=== PATIENT | male | born 1955 | race Caucasian/White ===

== ENCOUNTER 2018-05-08 11:12 | Emergency (ER) | payer OTHER ==
[~2018-05-08] VITALS: Ht 180.3 cm; Wt 90.7 kg
[~2018-05-08 11:12] MED LIST: CADUET 10 MG/101 TAB; LIPITOR20 MG; NORVASC2.5 MG; TRAMADOL HCL50 MG
[2018-05-08] MEDS ORDERED: VASOTEC5 MG (11:31)
== END 2018-05-08 15:43 | disposition home or self-care (01) ==
LOC: ER 11:12
DX: R07.89 Other chest pain (principal)

== ENCOUNTER 2018-10-15 10:23 | Emergency (ER) | payer OTHER ==
[~2018-10-15] VITALS: Ht 180.3 cm; Wt 106.6 kg
[~2018-10-15 10:23] MED LIST changes: +VASOTEC5 MG
[2018-10-15] MEDS ORDERED: CELEBREX100 MG PO (11:49)
== END 2018-10-15 12:12 | disposition home or self-care (01) ==
LOC: ER 10:23
DX: M25.561 Pain in right knee (principal)

== ENCOUNTER 2018-11-14 19:11 | Emergency (ER) | payer OTHER ==
[~2018-11-14] VITALS: Ht 180.3 cm; Wt 106.6 kg
[~2018-11-14 19:11] MED LIST changes: +CELEBREX100 MG PO
== END 2018-11-14 21:24 | disposition home or self-care (01) ==
LOC: ER 19:11
DX: M25.561 Pain in right knee (principal)

== ENCOUNTER 2020-02-07 12:21 | Emergency (ER) | payer OTHER ==
[~2020-02-07] VITALS: Ht 180.3 cm; Wt 97.5 kg
[2020-02-07] MEDS ORDERED: METFORMIN HCL500 M3 (12:32)
[2020-02-07] MEDS ORDERED: MAGNESIUM400 MG (12:32)
[2020-02-07] MEDS ORDERED: ROSUVASTATIN CA20 MG (12:33)
[2020-02-07] MEDS ORDERED: FOLIC ACID1 MG (12:33)
== END 2020-02-07 17:43 | disposition home or self-care (01) ==
LOC: ER 12:21 → CPU-OBS 12:46 → ER 17:43
DX: R07.89 Other chest pain (principal); Z03.818 Encounter for observation for suspected exposure to other biological agents ruled out
CPT/HCPCS: G0378; G0379; 93005

== ENCOUNTER 2020-11-12 21:11 | Emergency (ER) | payer OTHER ==
[~2020-11-12] VITALS: Ht 180.3 cm; Wt 95.3 kg
[~2020-11-12 21:11] MED LIST changes: +FOLIC ACID1 MG; +MAGNESIUM400 MG; +METFORMIN HCL500 M3; +ROSUVASTATIN CA20 MG
== END 2020-11-12 22:33 | disposition home or self-care (01) ==
LOC: ER 21:11
DX: K02.3 Arrested dental caries (principal); K08.89 Other specified disorders of teeth and supporting structures

== ENCOUNTER 2021-03-30 19:17 | Emergency (ER) | payer OTHER ==
[~2021-03-30] VITALS: Ht 152.4 cm; Wt 92.5 kg
[2021-03-30] MEDS ORDERED: NORFLEX100MG PO (22:18)
== END 2021-03-30 22:53 | disposition home or self-care (01) ==
LOC: ER 19:17
DX: R07.89 Other chest pain (principal); Z03.818 Encounter for observation for suspected exposure to other biological agents ruled out

== ENCOUNTER 2021-04-11 11:12 | Inpatient (IN) | payer OTHER ==
[~2021-04-11] VITALS: Ht 180.3 cm; Wt 93.0 kg
[~2021-04-11 11:12] MED LIST changes: +NORFLEX100MG PO
[2021-04-15] MEDS ORDERED: LOSARTAN POTASS50 MG PO (16:36)
[2021-04-15] MEDS ORDERED: ST. JOSEPH ASPI81 M2 PO (16:36)
[2021-04-15] MEDS ORDERED: MECLIZINE HCL12.5 MG PO (16:36)
[2021-04-15] MEDS ORDERED: LIPITOR40 MG PO (16:36)
[2021-04-15] MEDS ORDERED: FAMOTIDINE20 MG PO (16:36)
[2021-04-15] MEDS ORDERED: BRILINTA90 MG PO (16:36)
== END 2021-04-16 05:25 | disposition home or self-care (01) | DRG 303 ==
LOC: ER 11:12 → SEC-K 19:44 → MEDI 19:44
PROVIDERS: ADMIT Internal Medicine Cardiovascular Disease; ATTEND Internal Medicine Cardiovascular Disease
PROC: 4A02XM4 Measurement of Cardiac Total Activity, External Approach (ICD-10-PCS; principal; 2021-04-14)
DX: I25.10 Atherosclerotic heart disease of native coronary artery without angina pectoris (principal); I10 Essential (primary) hypertension; Z20.822 Contact with and (suspected) exposure to COVID-19
CPT/HCPCS: 70552

== ENCOUNTER 2022-08-31 10:12 | Emergency (ER) | payer OTHER ==
[~2022-08-31] VITALS: Ht 180.3 cm; Wt 90.7 kg
[~2022-08-31 10:12] MED LIST changes: +BRILINTA90 MG PO; +FAMOTIDINE20 MG PO; +LIPITOR40 MG PO; +LOSARTAN POTASS50 MG PO; +MECLIZINE HCL12.5 MG PO; +ORPHENADRINE C100 MG PO; +ST. JOSEPH ASPI81 M2 PO
[2022-08-31] MEDS ORDERED: ENALAPRIL MALEAT5 MG PO (10:55)
[2022-08-31] MEDS ORDERED: GABAPENTIN600 MG (10:56)
[2022-08-31] MEDS ORDERED: EZETIMIBE10 MG (10:56)
[2022-08-31] MEDS ORDERED: ROSUVASTATIN CA20 MG (10:57)
== END 2022-08-31 15:58 | disposition home or self-care (01) ==
LOC: ER 10:12
DX: R30.0 Dysuria (principal)

== ENCOUNTER 2022-09-21 09:56 | Outpatient (CLI) | payer OTHER ==
[~2022-09-21 09:56] MED LIST changes: +ENALAPRIL MALEAT5 MG PO; +EZETIMIBE10 MG; +GABAPENTIN600 MG; +GRALISE600 MG PO; +ISOSORBIDE MONO60 MG PO; +MAGNESIUM400 MG PO; +METFORMIN HCL500 MG
== END 2022-09-21 10:04 | disposition home or self-care (01) ==
LOC: MRI 09:56
PROVIDERS: ATTEND Internal Medicine Cardiovascular Disease
DX: G56.91 Unspecified mononeuropathy of right upper limb (principal)
CPT/HCPCS: 72148

== ENCOUNTER 2022-10-21 11:26 | Inpatient (IN) | payer OTHER ==
[~2022-10-21] VITALS: Ht 180.3 cm; Wt 91.6 kg
[~2022-10-21 11:26] MED LIST changes: -METFORMIN HCL500 MG; +METFORMIN HCL500 MG PO; +ROSUVASTATIN CA20 MG PO
[2022-10-26] MEDS ORDERED: AMLODIPINE BESYL5 MG PO (09:19)
[2022-10-26] MEDS ORDERED: FERROUS SULFAT325 M1 PO (09:19)
[2022-10-26] MEDS ORDERED: Septra Ds Tablet PO (09:19)
[2022-10-26] MEDS ORDERED: ISOSORBIDE MONO30 MG PO (09:20)
[2022-10-26] MEDS ORDERED: PAIN RELIEVER500 M2 PO (09:21)
[2022-10-26] MEDS ORDERED: HYDRALAZINE HCL25 MG PO (09:21)
[2022-10-26] MEDS ORDERED: LORAZEPAM1 MG PO (09:22)
[2022-10-26] MEDS ORDERED: RESTORIL15 MG PO (09:22)
[2022-10-26] MEDS ORDERED: TRAMADOL HCL50 MG PO (09:22)
[2022-10-26] MEDS ORDERED: FINASTERIDE5 MG PO (09:23)
[2022-10-26] MEDS ORDERED: TAMS0.4C PO (09:25)
== END 2022-10-26 09:37 | disposition home or self-care (01) | DRG 281 ==
LOC: ER 11:26 → ICU-2 20:03 → MEDJ 10-24 21:30
PROVIDERS: ADMIT Internal Medicine Cardiovascular Disease; ATTEND Internal Medicine Cardiovascular Disease
PROC: 4A12X4Z Monitoring of Cardiac Electrical Activity, External Approach (ICD-10-PCS; principal; 2022-10-21)
PROC: B246ZZZ Ultrasonography of Right and Left Heart (ICD-10-PCS; 2022-10-21)
PROC: 5A0955A Assistance with Respiratory Ventilation, Greater than 96 Consecutive Hours, High Flow/Velocity Cannula (ICD-10-PCS; 2022-10-21)
PROC: 0TPBX0Z Removal of Drainage Device from Bladder, External Approach (ICD-10-PCS; 2022-10-22)
PROC: 0T9B70Z Drainage of Bladder with Drainage Device, Via Natural or Artificial Opening (ICD-10-PCS; 2022-10-22)
DX: I16.0 Hypertensive urgency (principal); I21.A1 Myocardial infarction type 2; N17.8 Other acute kidney failure; T83.83XA Hemorrhage due to genitourinary prosthetic devices, implants and grafts, initial encounter; N13.9 Obstructive and reflux uropathy, unspecified; R31.0 Gross hematuria; N40.1 Benign prostatic hyperplasia with lower urinary tract symptoms; R33.8 Other retention of urine; I10 Essential (primary) hypertension; E11.9 Type 2 diabetes mellitus without complications; E78.00 Pure hypercholesterolemia, unspecified; Z79.84 Long term (current) use of oral hypoglycemic drugs; Z20.822 Contact with and (suspected) exposure to COVID-19

== ENCOUNTER 2023-07-01 08:51 | Outpatient (CLI) | payer OTHER ==
[~2023-07-01 08:51] MED LIST changes: +AMLODIPINE BESYL5 MG PO; +FERROUS SULFAT325 M1 PO; +FINASTERIDE5 MG PO; +HYDRALAZINE HCL25 MG PO; +ISOSORBIDE MONO30 MG PO; +LORAZEPAM1 MG PO; +PAIN RELIEVER500 M2 PO; +RESTORIL15 MG PO; +Septra Ds Tablet PO; +TAMS0.4C PO; +TRAMADOL HCL50 MG PO
[2023-07-01 09:19] LABS: ABG PH 7.407 (7.35-7.45); ABG pCO2 39.9 mmHg (35-45)
[2023-07-01 09:20] LABS: BASE EXCESS 0 mmol/l; BICARBONATE 24.5 mmol/l (23-25); SaO2 97.2 %; Tco2 25.8 mmol/l; allen test SATISFACTORY; o2 21 %; puncture site RADIAL RIGHT
[2023-07-01 09:38] LABS: HEMATOCRIT 39.3 % (39.0-48.0); HEMOGLOBIN 13.1 g/dL (13-16.00); MEAN CELL VOLUME 85.5 fL (80.0-100.00); MEAN CORPUSCULAR HEMOGLOBIN 28.4 pg (27.00-32.0); MEAN CORPUSCULAR HGB CONC 33.2 g/dl (32.0-36.0); PLATELET COUNT 242 K/uL (150-450); RED BLOOD COUNT 4.59 M/uL (4.00-6.00); RED CELL DISTRIBUTION WIDTH 14.9 % (11.5-14.5)
== END 2023-07-01 08:57 | disposition home or self-care (01) ==
LOC: LAB 08:51
PROVIDERS: ATTEND Internal Medicine Cardiovascular Disease
DX: R53.83 Other fatigue (principal); E78.00 Pure hypercholesterolemia, unspecified; Z78.1 Physical restraint status

== ENCOUNTER 2023-10-31 18:50 | Emergency (ER) | payer OTHER ==
[~2023-10-31] VITALS: Ht 180.3 cm; Wt 86.2 kg
[2023-10-31] MEDS ORDERED: ZETIA10 MG (19:04)
[2023-10-31] MEDS ORDERED: PLAVIX75 MG (19:04)
[2023-10-31] MEDS ORDERED: FAMOTIDINE/PF 20 MG/2 ML VIAL IV PUSH ONE (19:45)
[2023-10-31] MEDS ORDERED: METOCLOPRAMIDE HCL 5 MG/ML VIAL IM ONE (19:45)
[2023-10-31 20:26] LABS: HEMOGLOBIN 15.7 g/dL (13-16.00); MEAN CELL VOLUME 87.2 fL (80.0-100.00); MEAN CORPUSCULAR HEMOGLOBIN 29.1 pg (27.00-32.0); MEAN CORPUSCULAR HGB CONC 33.4 g/dl (32.0-36.0); PLATELET COUNT 183 K/uL (150-450); RED BLOOD COUNT 5.39 M/uL (4.00-6.00); RED CELL DISTRIBUTION WIDTH 15.2 % (11.5-14.5)
[2023-10-31 20:46] LABS: CALCIUM 9.5 mg/dL (8.5-10.1); GFR 74.09; POTASSIUM 4.31 mEq/L (3.5-5.1)
== END 2023-10-31 21:12 | disposition home or self-care (01) ==
LOC: ER 18:51
PROVIDERS: General Practice
DX: R53.81 Other malaise (principal); T50.905A Adverse effect of unspecified drugs, medicaments and biological substances, initial encounter
CPT/HCPCS: 36415; 93005; 96365; 96372; 99282; J2765; J3490